=== PATIENT | female | born 1980 | race Caucasian/White ===

== ENCOUNTER 2022-01-14 08:23 | Day surgery (SDC) | payer BC ==
[~2022-01-14 08:23] MED LIST: CODACE30 PO; IBUP800 PO; META800 PO; Prilosec Otc20 MG
[2022-01-22] MEDS ORDERED: NAPR220 PO (10:15)
== END 2022-01-26 00:02 | disposition home or self-care (01) ==
LOC: MOI US 08:23
DX: C77.3 Secondary and unspecified malignant neoplasm of axilla and upper limb lymph nodes (principal); C50.919 Malignant neoplasm of unspecified site of unspecified female breast
CPT/HCPCS: 38505; 76942; 88305; 88342; A4648

== ENCOUNTER 2022-12-04 08:32 | Day surgery (SDC) | payer BC, OTHER | END 2022-12-05 11:50 | disposition home or self-care (01) | LOC: ORSCMMR 08:32 → SURS 14:47 | PROC: 0UT9FZZ Resection of Uterus, Via Natural or Artificial Opening With Percutaneous Endoscopic Assistance (ICD-10-PCS; principal; 2022-12-04) | PROC: 8E0W4CZ Robotic Assisted Procedure of Trunk Region, Percutaneous Endoscopic Approach (ICD-10-PCS; principal; 2022-12-04) | PROC: 0U5F4ZZ Destruction of Cul-de-sac, Percutaneous Endoscopic Approach (ICD-10-PCS; principal; 2022-12-04) | PROC: 0UT2FZZ Resection of Bilateral Ovaries, Via Natural or Artificial Opening With Percutaneous Endoscopic Assistance (ICD-10-PCS; principal; 2022-12-04) | PROC: 0UT7FZZ Resection of Bilateral Fallopian Tubes, Via Natural or Artificial Opening With Percutaneous Endoscopic Assistance (ICD-10-PCS; principal; 2022-12-04) | DX: C50.111 Malignant neoplasm of central portion of right female breast (principal); Z90.11 Acquired absence of right breast and nipple; N83.12 Corpus luteum cyst of left ovary; Z17.0 Estrogen receptor positive status [ER+]; N94.89 Other specified conditions associated with female genital organs and menstrual cycle; F41.9 Anxiety disorder, unspecified; F32.A Depression, unspecified; Z79.899 Other long term (current) drug therapy | CPT/HCPCS: 58571; 58662; S2900 ==